=== PATIENT | male | born 1980 | race Caucasian/White ===

== ENCOUNTER → 2021-03-05 13:33 | Outpatient (CLI) | payer OTHER, SELFPAY ==
--- NOTE | 2021-03-05 | DI.ECHO.S_ITS ---
[facility] +---------+ : : [address] : [place] : : : : [id number] : : : : Phone: [phone]---------+ Echocardiogram Report + + :Name: GARRY ZARAGOZA Study Date: 03/05/2021 Height: 71 in : :[facility] ReadingLocation: Weight: 225 lb : : Gender: Male BSA: 2.2 m2 : :: 1980 Age: 40 yrs BP: 127/76 mmHg: :Reason For Study: PALPITATIONS : :Ordering Physician: ANDRIY, : :CARMEL Performed By: Pam Santos : :Referring: CARMEL ASHRAF : + + Interpretation Summary The left ventricle is normal in size and wall thickness. The ejection fraction is estimated to be 60-65%. The right ventricle is normal in size and function. No significant valvular pathology seen. Procedure: A two-dimensional transthoracic echocardiogram with color flow and Doppler was performed in limited views only. The study quality was technically adequate. There is no prior echocardiogram noted for this patient. The patient was in sinus rhythm with heart rates between 54-67 bpm during the exam. Left Ventricle: The left ventricle is normal in size and wall thickness. There is no thrombus. The ejection fraction is estimated to be 60-65%. There are no focal wall motion abnormalities. Diastolic parameters suggest a relaxation abnormality of the left ventricle, consistent with probable normal filling pressures. Right Ventricle: The right ventricle is normal in size and function. Atria: The left atrial size is normal. Right atrial size is normal. There is no Doppler evidence for an interatrial shunt. Mitral Valve: There is a flat closure plane of the the mitral valve leaflets. There is systolic anterior motion of the chordal apparatus. There is trace mitral regurgitation. Aortic Valve: The aortic valve is trileaflet. The aortic valve opens well. There is no aortic valve stenosis. No aortic regurgitation is present. Tricuspid Valve: The tricuspid valve is normal in structure and function. There is trace tricuspid regurgitation. Right ventricular systolic pressure is estimated to be 18.3 mmHg plus the clinically estimated CVP which cannot be estimated on this exam. Pulmonic Valve: The pulmonic valve is not well seen, but is grossly normal. There is no pulmonic valvular regurgitation. Great Vessels: The aortic root is normal size. The ascending aorta is normal in size. The inferior vena cava was not well visualized. Pericardium/ Pleura There is no pericardial effusion. There is no pleural effusion. MMode/2D Measurements & Calculations LVIDd: 4.8 cm LVOT diam: 2.2 cm LVIDs: 3.5 cm Ao root diam: 3.4 cm FS: 27.7 % asc Aorta Diam: 3.4 cm IVSd: 0.80 cm Ao Arch Diam (Prox Trans): 2.9 cm LVPWd: 0.98 cm LV moss. diameter/BSA (cm/m^2): 2.2 LV sys. diameter/BSA (cm/m^2): 1.6 LA A2 area: 20.0 cm2 RA long axis: 4.8 cm LA A4 area: 18.0 cm2 RA area: 14.9 cm2 LA length (vol): 4.9 cm RA vol: 39.4 ml LA vol: 62.4 ml RA : 17.8 ml/m2 LA vol index: 28.1 ml/m2 RVD1 (basal): 3.6 cm TAPSE: 2.2 cm Doppler Measurements & Calculations Ao V2 max: 101.1 cm/sec LVOT Max Bautista: 82.1 cm/sec Ao V2 mean: 71.8 cm/sec LV V1 max P.7 mmHg Ao max P.1 mmHg LV V1 VTI: 18.4 cm Ao mean P.3 mmHg ALTAGRACIA(I,D): 3.2 cm2 Ao V2 VTI: 22.1 cm ALTAGRACIA(V,D): 3.1 cm2 sev ratio: 0.83 ALTAGRACIA indexed to BSA (cm^2/m^2): 1.4 MV E max bautista: 75.3 cm/sec TR max bautista: 214.0 cm/sec MV A max bautista: 73.6 cm/sec TR max P.3 mmHg MV E/A: 1.0 PA V2 max: 78.5 cm/sec Med Peak E' Bautista: 9.2 cm/sec PA V2 mean: 53.6 cm/sec E/E' med: 8.2 PA mean P.3 mmHg Lat Peak E' Bautista: 12.7 cm/sec PA pr(Accel): 22.5 mmHg E/E' lat: 5.9 E/e' average: 7.0 MV dec time: 0.18 sec SV(LVOT): 70.0 ml Reading Physician:04:43 PM
--- NOTE | 2021-03-05 20:51 | DI.NM.S_ITS ---
DATE OF SERVICE: 03/05/2021 PROCEDURE PERFORMED: Exercise stress test. INDICATIONS: Atypical chest pain, exercise induced hypertension, dizziness. EXERCISE STRESS TEST: The patient underwent exercise stress test under the supervision of an attending staff. The patient walked on Rubén protocol for 11 minute and 37 seconds, achieved 12.8 METs of workload, 101 percent of target heart rate and normal hemodynamic response. Baseline blood pressure 110/68 mmHg. Peak blood pressure 162/80 mmHg. Achieved 101 percent of target heart rate. Baseline heart rate 76 and peak heart rate 183. Achieved 12.8 METs of workload. Functional aerobic impairment positive 8 percent. No anginal symptoms. Baseline rhythm was sinus. During exercise, no convincing ischemic changes or significant arrhythmias seen. CONCLUSION: 1. Exercise stress test is negative for inducible ischemia. 2. Normal hemodynamic response. 3. No significant arrhythmias or anginal symptoms. 4. Walked on Rubén protocol for 11 minute and 37 seconds and achieved 12.8 metabolic equivalents of workload and functional aerobic impairment positive 8 percent. Overall low-risk exercise stress test. Randall Bashir - OTILIA/blaise/maritza doc#: [id number]/job#: [id number] dd: 03/05/2021 17:15:00 dt: 03/05/2021 18:50:00 DICTATING /COPIES TO: Tiago Longo MD COPIES MNE: DEV;
== END ==
PROVIDERS: Referring Provider Internal Medicine Cardiovascular Disease; Visit Provider Internal Medicine Cardiovascular Disease
DX: R07.89 Other chest pain (principal); R00.2 Palpitations
CPT/HCPCS: 93017; 93306

== ENCOUNTER → 2023-05-19 09:09 | Outpatient (CLI) | payer OTHER, SELFPAY | LOC: PHYS 09:11 | PROVIDERS: Family Provider General Practice; PCP General Practice; Referring Provider General Practice; Visit Provider General Practice | DX: R20.0 Anesthesia of skin (principal) | CPT/HCPCS: 95886; 95912 ==